=== PATIENT | female | born 1975 | race Caucasian/White ===

== ENCOUNTER 2019-06-04 23:22 | Emergency (ER) | payer OTHER ==
--- NOTE | 2019-06-04 23:42 | ER Document Report ---
ED Medical Screen (RME) - General Chief Complaint: Shortness Of Breath Stated Complaint: SHORTNESS OF BREATH, IRREGULAR PULSE Time Seen by Provider: 06/04/19 23:39 Primary Care Provider: EWELINA MAE MD [Primary Care Provider] - Follow up as needed Notes: HPI: 44-year-old female presenting for chest heaviness that began when she went to bed tonight with a sensation of her heart beating irregularly and quickly. Reports shortness of breath worsened with exertional activity tonight after onset of events. Patient felt fine all day, no fever or other illness. She states she had a cough last week which is improving. Heaviness does not radiate into the back or neck. I have greeted and performed a rapid initial assessment of this patient. A comprehensive ED assessment and evaluation of the patient, analysis of test results and completion of the medical decision making process will be conducted by additional ED providers PHYSICAL EXAMINATION: Lung sounds are relatively clear to auscultation, she is tachycardic with an auscultated heart rate of 116 at rest. Does not become dyspneic with speaking. - Related Data Allergies/Adverse Reactions: oxycodone HCl [From OxyContin] Allergy (Unknown, Verified 12/26/11 11:10) Past Medical History Pulmonary Medical History: Reports: Hx Asthma Past Surgical History: Reports: Hx Section Physical Exam - Vital signs Vitals: Temp Pulse Resp BP Pulse Ox 98.1 F 110 H 17 159/114 H 97 06/04/19 23:34 06/04/19 23:34 06/04/19 23:34 06/04/19 23:34 06/04/19 23:34 Course - Vital Signs Vital signs: Temp Pulse Resp BP Pulse Ox 98.1 F 110 H 17 159/114 H 97 06/04/19 23:34 06/04/19 23:34 06/04/19 23:34 06/04/19 23:34 06/04/19 23:34 Doctor's Discharge - Discharge Referrals: EWELINA MAE MD [Primary Care Provider] - Follow up as needed
[2019-06-05 00:12] LABS: ABSOLUTE BASOPHILS # (AUTO) 0.1 10^3/uL (0.0-0.2); ABSOLUTE EOSINOPHILS # (AUTO) 0.2 10^3/uL (0.0-0.6); ABSOLUTE LYMPHOCYTES (AUTO) 3.4 10^3/uL (0.5-4.7); ABSOLUTE MONOCYTES (AUTO) 0.8 10^3/uL (0.1-1.4); ABSOLUTE NEUT (AUTO) 7.8 10^3/uL (1.7-8.2); BASOPHILS % (AUTO) 0.7 % (0-2); EOSINOPHILS % (AUTO) 1.8 % (0-6); HEMATOCRIT 43.6 % (36.0-47.0); HEMOGLOBIN 15.1 g/dL (12.0-15.5); LYMPHOCYTES % (AUTO) 27.3 % (13-45); MEAN CORPUSCULAR HEMOGLOBIN 28.8 pg (27.0-33.4); MEAN CORPUSCULAR HGB CONC 34.6 g/dL (32.0-36.0); MEAN CORPUSCULAR VOLUME 83 fl (80-97); MONOCYTES % (AUTO) 6.3 % (3-13); PLATELET COUNT 282 10^3/uL (150-450); RED BLOOD COUNT 5.25 10^6/uL (3.72-5.28); RED CELL DISTRIBUTION WIDTH 14.6 % (11.5-14.0); SEGMENTED NEUTROPHILS % (AUTO) 63.9 % (42-78); TOTAL CELLS COUNTED % (AUTO) 100 %; WHITE BLOOD COUNT 12.3 10^3/uL (4.0-10.5)
--- NOTE | 2019-06-05 00:12 | RADIOLOGY REPORT (SQ) ---
EXAM DESCRIPTION: CLINICAL HISTORY: 44 years, Female, sob COMPARISON: None. FINDINGS: PA and lateral chest radiographs were performed. The lungs are well expanded and clear. The costophrenic sulci are sharp. The cardiac silhouette, hilar regions, trachea, soft tissues and bony structures are unremarkable. IMPRESSION: No acute cardiopulmonary disease.
[2019-06-05] MEDS ORDERED: DEXAMETHASONE SOD PHOS INJ 10 MG/1 ML VIAL IV ONE (00:24)
[2019-06-05] MEDS ORDERED: LORAZEPAM INJ 2 MG/1 ML VIAL IV ONE (00:24)
--- NOTE | 2019-06-05 00:25 | ER Document Report ---
ED General - General Chief Complaint: Chest Pain Stated Complaint: SHORTNESS OF BREATH, IRREGULAR PULSE Time Seen by Provider: 06/04/19 23:39 Primary Care Provider: [facility] [Provider Group] - Follow up as needed Mode of Arrival: Ambulatory Information source: Patient Notes: 44-year-old woman presents to the emergency department with a complaint of chest heaviness, feeling as though it is difficult to get her breath and rapid heartbeat. She states that symptoms began when she laid down to go to bed tonight. She has never had similar episodes in the past. She does have a history of asthma however, states that this feels different. She denies chest pain or associated dizziness, lightheadedness. She presents to the emergency department for further evaluation and treatment. - Related Data Allergies/Adverse Reactions: oxycodone HCl [From OxyContin] Allergy (Unknown, Verified 12/26/11 11:10) adhesive Allergy (Verified 06/04/19 23:42) Past Medical History - Social History Smoking Status: Never Smoker Chew tobacco use (# tins/day): No Frequency of alcohol use: None Drug Abuse: None Family History: Reviewed & Not Pertinent Patient has suicidal ideation: No Patient has homicidal ideation: No Pulmonary Medical History: Reports: Hx Asthma Past Surgical History: Reports: Hx Section Review of Systems - Review of Systems Notes: Constitutional: Negative for fever. HENT: Negative for sore throat. Eyes: Negative for visual changes. Cardiovascular: + Chest pressure Respiratory: + Shortness of breath. Gastrointestinal: Negative for abdominal pain, vomiting or diarrhea. Genitourinary: Negative for dysuria. Musculoskeletal: Negative for back pain. Skin: Negative for rash. Neurological: Negative for headaches, weakness or numbness. 10 point ROS negative except as marked above and in HPI. Physical Exam - Vital signs Vitals: Temp Pulse Resp BP Pulse Ox 98.1 F 110 H 17 159/114 H 97 06/04/19 23:34 06/04/19 23:34 06/04/19 23:34 06/04/19 23:34 06/04/19 23:34 - Notes Notes: PHYSICAL EXAMINATION: Physical Exam: General: Well-nourished well-developed 44-year-old woman in no acute distress HEENT: NC/AT, pupils equal round and reactive to light, MM moist,nares clear, oropharynx clear, airway patent Neck: supple, no adenopathy, no masses. Good range of motion Lungs: clear, no wheezing, no rales no rhonchi CVS: Tachycardic rate and rhythm no murmur gallop or rub Abdomen: Soft, active, nontender, no masses, no hepatosplenomegaly Ext: No edema, clubbing or cyanosis. Neuro: Alert and responsive, moving all 4 extremities on command, cranial nerves intact, no focal findings Skin: Intact no open lesions, no rash PSYCH: Normal mood, normal affect. Course - Re-evaluation Re-evalutation: 06/05/19 00:35 Patient noted to have a deep sighing and anxious affect. IV was started the patient was given Lorazepam 1 mg, chest x-ray noted to be clear EKG sinus tachycardia with no ST or T wave abnormalities noted. Explained to the patient that her symptoms appear to be anxiety/panic, however, close evaluation is being conducted. In the interim we will treat you symptomatically and monitor your response patient is in agreement with that plan. 06/05/19 02:49 CTA of the chest was performed, no pulmonary embolus, no intrapulmonary pathology noted. Patient blood pressure continues to be elevated, I have discussed it with the patient we will start her on a low dose of blood pressure medication. She also requested refills of her asthma medications albuterol inhaler and albuterol nebulizer solution. Patient is being discharged home to follow-up with primary care physician. We will give her a clinic for referral. - Vital Signs Vital signs: Temp Pulse Resp BP Pulse Ox 98.1 F 110 H 26 H 158/108 H 97 06/04/19 23:34 06/04/19 23:34 06/05/19 01:22 06/05/19 01:22 06/05/19 01:22 - Laboratory Result Diagrams: 06/04/19 23:57 06/04/19 23:57 Laboratory results interpreted by me: 06/04/19 06/04/19 23:57 23:57 WBC 12.3 H RDW 14.6 H TSH 4.77 H - Diagnostic Test Radiology reviewed: Image reviewed, Reports reviewed - Chest x-ray: No acute cardiopulmonary findings. CTA chest: No acute pulmonary embolus, no intrapulmonary pathology noted. - EKG Interpretation by Me EKG shows normal: Sinus rhythm, Intervals Rate: Tachycardia - Sinus tachycardia, rate 106, no acute ST or T wave abnorma lities seen. Discharge - Discharge Clinical Impression: Dizziness, Chest pressure Hypertension Qualifiers: Hypertension type: unspecified Qualified Code(s): I10 - Essential (primary) hypertension Condition: Good Disposition: HOME, SELF-CARE Instructions: High Blood Pressure, Requiring Treatment ([facility]) Additional Instructions: You were treated for elevated blood pressure in the emergency department tonight. You are being given prescriptions for a blood pressure medication. Obtain a blood pressure cuff from your pharmacy and monitor the blood pressure closely. Follow-up with a primary care physician, you will be provided with the name of the clinic that you may follow-up with. HOME CARE INSTRUCTIONS & INFORMATION: Thank you for choosing us for your medical needs. We hope you're satisfied with the care you received. After you leave, you must properly care for your problem and, at the same time, observe its progress. Any condition can change. Some illnesses can change rapidly over hours or days. If your condition worsens, return to the Emergency Department or see your physician promptly. ABOUT YOUR X-RAYS AND EKG'S: If you had an EKG or X-rays taken, they have been read by the Emergency Physician. The X-rays and EKG's will also be read by a Radiologist or Executive Team Leader within 24 hours. If discrepancies are noted, you will be notified by telephone. Please be certain the ED has a correct telephone number & address where you can be reached. Also, realize that some fractures or abnormalities do not show up on initial X-rays. If your symptoms continue, see your physician. ABOUT YOUR LABORATORY TEST: If you had laboratory tests, the results have been reviewed by the Emergency Physician. Some test results (for example cultures) may not be available for several days. You will be contacted if any test result shows you need additional treatment. Please be certain the ED has a correct telephone number and address where you can be reached. ABOUT YOUR MEDICATIONS: You will receive instructions on how to take your medicine on the prescription label you receive. Additional information may be provided by the Pharmacy. If you have questions afterwards, call the ED for clarification or further instructions. Some prescribed medications may cause drowsiness. Do not perform tasks such as driving a car or operating machinery without consulting your Pharmacist. If you feel you need a refill of pain medication, your condition will need re-evaluation. Please do not call for a refill of any medication. ABOUT YOUR SIGNATURE: Signature of this document acknowledges to followin. Understanding that you received emergency treatment and that you may be released before al medical problems are known or treated. Please be certain the ED has a correct phone number & address where you can be reached. 2. Acknowledgement that you will arrange for follow-up care as recommended. 3. Authorization for the Emergency Physician to provide information to your follow-up Physician in order to maximize your care. AT ANY TIME, IF YOUR SYMPTOMS CHANGE SIGNIFICANTLY OR WORSEN OR YOU DEVELOP NEW SYMPTOMS, RETURN TO THE EMERGENCY DEPARTMENT IMMEDIATELY FOR RE-EVALUATION. OUR GOAL IS TO PROVIDE EXCELLENT MEDICAL CARE! WE HOPE THAT WE HAVE MET YOUR EXPECTATIONS DURING YOUR EMERGENCY DEPARTMENT VISIT AND THAT YOU FEEL YOU HAVE RECEIVED EXCELLENT CARE! Prescriptions: Lisinopril [Prinivil 5 mg Tablet] 5 mg PO DAILY #20 tablet Albuterol Sulfate [Proair HFA Inhalation Aerosol 8.5 gm MDI] 2 puff IH Q4H PRN #1 mdi PRN Reason: Albuterol Sulfate [Ventolin 0.083% Neb 2.5 mg/3 mL Ampul] 1 vial NEB Q4 PRN #60 vial PRN Reason: Shortness Of Breath Forms: Elevated Blood Pressure Referrals: [facility] [Provider Group] - Follow up as needed
[2019-06-05 00:36] LABS: ALBUMIN 4.3 g/dL (3.5-5.0); ALKALINE PHOSPHATASE 76 U/L (38-126); ANION GAP 10 (5-19); ASPARTATE AMINO TRANSFERASE 17 U/L (14-36); BILIRUBIN,DIRECT 0.3 mg/dL (0.0-0.4); BILIRUBIN,TOTAL 0.3 mg/dL (0.2-1.3); BLOOD UREA NITROGEN 18 mg/dL (7-20); CALCIUM 9.6 mg/dL (8.4-10.2); CARBON DIOXIDE 26 mmol/L (22-30); CHLORIDE 101 mmol/L (98-107); GLUCOSE 108 mg/dL (75-110); POTASSIUM 4.3 mmol/L (3.6-5.0); TOTAL PROTEIN 7.6 g/dL (6.3-8.2)
--- NOTE | 2019-06-05 02:32 | RADIOLOGY REPORT (SQ) ---
EXAM DESCRIPTION: CT CHEST ANGIOGRAPHY WITHOUT THEN WITH IV CONTRAST COMPLETED DATE/TME: 06/05/2019 01:30 CLINICAL HISTORY: 44 years, Female, Shortness of breath COMPARISON: None. TECHNIQUE: 1000 Images stored on PACS. All CT scanners at this facility use dose modulation, iterative reconstruction, and/or weight based dosing when appropriate to reduce radiation dose to as low as reasonably achievable (ALARA). Axial CTA images with coronal and sagittal MIPS [facility]: Dose Right [facility]: CareDose [facility]: Dose Right [facility]: Teradose 4D [facility]: [employer] LIMITATIONS: Imaging was repeated secondary to suboptimal contrast bolus FINDINGS: On a second sequence of images, there is no large or central pulmonary embolus. There continues to be suboptimal contrast bolus however no definitive intraluminal filling defect. Large portion of the bolus in the superior vena cava. Negative for thoracic aortic aneurysm or dissection. The heart and pericardium are unremarkable. Limited evaluation of the upper abdomen shows a small hiatal hernia. Osseous structures are grossly intact. No pneumothorax. Airways are patent. The lungs are clear IMPRESSION: Suboptimal contrast bolus. However, no convincing evidence for pulmonary embolus. The lungs are clear TECHNICAL DOCUMENTATION: Quality ID # [id number]: Final reports with documentation of one or more dose reduction techniques (e.g., Automated exposure control, adjustment of the mA and/or kV according to patient size, use of iterative reconstruction technique) copyright 2011 [employer]- All Rights Reserved
[2019-06-05] MEDS ORDERED: ALBUTEROL SULFATE HFA (90 MCG/PUFF) 8 GM MDI (1 MDI/ER DISP) IH STA (02:48)
[2019-06-05] MEDS ORDERED: CLONIDINE HCL 0.1 MG TABLET PO ONE (02:48)
[2019-06-05 03:56] VITALS: BP 148/96
--- NOTE | 2019-06-05 12:34 | EKG REPORT ---
SEVERITY:- OTHERWISE NORMAL ECG - SINUS TACHYCARDIA : Confirmed by: Amy Zambrano MD 05-Jun-2019 12:33:33
== END 2019-06-05 03:42 | disposition home or self-care (01) ==
LOC: ER 23:22
DX: R42 Dizziness and giddiness (principal); R07.9 Chest pain, unspecified; R06.02 Shortness of breath; J45.909 Unspecified asthma, uncomplicated; Z79.899 Other long term (current) drug therapy; I10 Essential (primary) hypertension
CPT/HCPCS: 93005; 36415; 83735; 84443; 84703; 85025; 80053; 84484; 83880; 71046; 71275; 93010; J2060; J1100; J3490; 96374; 96375; 99284